=== PATIENT | female | born 1960 | race Caucasian/White ===

== ENCOUNTER 2022-07-20 21:27 | Inpatient (IN) | payer BC, SELFPAY ==
[2022-07-20 22:30] VITALS: BP 169/80; PULSE 74; RESP 16; TEMP 36.6; O2SAT 100
[2022-07-20] MEDS: Famotidine 20 MG TABLET PO (23:37)
[2022-07-20] MEDS: traZODone HCL 100 MG TABLET PO (23:37)
[2022-07-20] MEDS: Omeprazole 40 MG CAPSULE.DR PO (23:37)
[2022-07-20] MEDS: Acetaminophen 325 MG TABLET 650 MG PO (23:46)
[2022-07-20 23:50] VITALS: BMI 26.0
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
[2022-07-21 08:16] VITALS: BP 184/90; PULSE 91; RESP 16; TEMP 36.6; O2SAT 98
[2022-07-21] MEDS: Multivitamin TABLET 1 TAB PO (08:35)
[2022-07-21] MEDS: Omeprazole 40 MG CAPSULE.DR PO ×2 (08:35→17:17)
[2022-07-21] MEDS: Atorvastatin Calcium 10 MG TABLET PO (08:35)
[2022-07-21] MEDS: Famotidine 20 MG TABLET PO ×2 (08:36→21:08)
[2022-07-21] MEDS: lisinopriL 10 MG TABLET PO (08:37)
[2022-07-21 09:14] LABS: Cholesterol 172 mg/dL; HDL Cholesterol 53 mg/dL; LDL Cholesterol Calculated 84 mg/dl; Magnesium 2.1 mg/dL (1.6-2.6); Triglycerides 178 mg/dL
[2022-07-21 09:18] LABS: Estimated Average Glucose 111 mg/dL; Hemoglobin A1c % 5.5 %
[2022-07-21 09:36] LABS: Free T4 (Free Thyroxine) 1.13 ng/dL (0.71-1.85); Thyroid Stimulating Hormone 0.34 uIU/mL (0.32-4.0)
[2022-07-21] MEDS: Docusate Sodium 100 MG CAPSULE PO ×2 (09:37→21:08)
--- NOTE | 2022-07-21 13:44 | PC.NURSE ---
Per patient request phone, 2 chargers, notebook computer, 2 sets of keys and wallet given to patient's to bring home. Blue coat and Blue Craft Manager bag with all contents of bag given to to bring home also, at patient request.
[2022-07-21 15:39] LABS: Folate 17.2 ng/mL (> or = 4.0); Vitamin B12 778 pg/mL (200-900)
--- NOTE | 2022-07-21 16:47 | P.CNHOSGPS_ITS ---
History of Present Illness Data of Consult Service Date: 07/21/22 Requesting physician: Colleen Kasper Primary Care Provider: Unknown Physician HPI Reason for consult: New admission, routine H&P This is a 61 year old female admitted to for management of SI. She has multiple medical issues including acid reflux, hypertension, hyperlipidemia, diet-controlled diabetes, gastroparesis and ROMERO. She was admitted to the psychiatric floor for management of suicidal ideation in the setting of recent of her mother. She states that she has left-sided rib pain related to a recent rib fracture. She denies any associated shortness of breath or cough. She has had total colectomy but does not usually suffer from constipation. She does report a few days without bowel movement but no abdominal pain. She denies fever or chills. Review of Systems Review of Systems: Yes all other systems are reviewed and are negative Constitutional: Constitutional: Denies chills and Denies fever(s) Cardiovascular: Cardiovascular: Denies chest pain, Denies palpitations and Denies dyspnea Respiratory: Respiratory: Denies cough and Denies dyspnea Gastrointestinal: Gastrointestinal: Denies abdominal pain, Denies nausea and Denies vomiting Endocrine: Endocrine: Denies palpitations [facility] Medical History Cirrhosis Depression Diabetes mellitus, type 2 Esophageal varices Gastroparesis GERD (gastroesophageal reflux disease) Glaucoma Hypercholesteremia Hypertension PTSD (post-traumatic stress disorder) Suicidal behavior Family History Father Alcoholism Mother Lung cancer Surgical History H/O total colectomy History of hysterectomy Social History Household Members: Spouse Housing: House Do you presently have visiting nurse or other home services: No Patient Tobacco Use Status: Never used Tobacco Smoked in Last 30 Days: No e-Cigarette/Vaping Use: Never Used Patient Interested in Nicotine Replacement: No Patient Given Instructions on How to Stop Smoking: No Second Hand Smoke Exposure: No Use of substances other than those prescribed or required for medical reasons: No Currently Displaying Signs/Symptoms of Drug Intoxication Withdrawal: No Have you been hit, kicked, punched, or otherwise hurt by someone within the past year? If so, by whom?: No Do you feel safe in your current relationship?: Yes Is there a partner from a previous relationship who is making you feel unsafe now?: No Are you made to feel afraid or neglected: No Advance Directives: No Advance Directives Information Provided: No Do you have thoughts of harming others: None Do you have a plan to hurt others: No Plan Recently lost weight without trying: Yes How much weight loss: 2-13 pounds Eating poorly because of decreased appetite: Yes Nutrition screen score: 4 Nutrition Risks: No Nutritional Risk Patient : No : No Poor oral hygiene: No Meds Allergies Allergy/AdvReac Type Severity Reaction Status Date / Time No Known Allergies Allergy Verified 07/20/22 22:29 Active Medications: Current Medications Al Hydroxide/Mg Hydroxide (Magnesium Hydrox/Alum Hydrox 30 Ml Oral.Susp) 30 ml PO Q6H PRN PRN Reason: Heartburn/Nausea Atorvastatin Calcium (Atorvastatin Calcium 10 Mg Tablet) 10 mg PO DAILY [facility] Last Admin: 07/21/22 08:35 Dose: 10 mg Clonazepam (Clonazepam 1 Mg Tablet) 1 mg PO BID PRN PRN Reason: anxiety Docusate Sodium (Docusate Sodium 100 Mg Capsule) 100 mg PO BID [facility] Last Admin: 07/21/22 09:37 Dose: 100 mg Famotidine (Famotidine 20 Mg Tablet) 20 mg PO BID [facility] Last Admin: 07/21/22 08:36 Dose: 20 mg Fluticasone Propionate (Fluticasone Propionate Nasal 16 Gm [place]) 2 spray NOSTRIL-B DAILY PRN PRN Reason: dry nose Hydroxyzine HCl (Hydroxyzine Hcl 25 Mg Tablet) 25 mg PO Q6H PRN PRN Reason: Anxiety Latanoprost (Latanoprost 0.005 % Ophth Tara 2.5 Ml Drops) 1 drop EYE-BOTH BEDTIME [facility] Lisinopril (Lisinopril 10 Mg Tablet) 10 mg PO DAILY [facility]; Protocol Last Admin: 07/21/22 08:37 Dose: 10 mg Magnesium Hydroxide (Milk Of Magnesia 30 Ml Oral.Susp) 30 ml PO DAILY PRN PRN Reason: Constipation Multivitamins/Vitamin C (Multivitamin Tablet) 1 tab PO DAILY [facility] Last Admin: 07/21/22 08:35 Dose: 1 tab Omeprazole (Omeprazole 40 Mg Capsule.Dr) 40 mg PO BID@0630,1630 [facility] Last Admin: 07/21/22 08:35 Dose: 40 mg Trazodone HCl (Trazodone Hcl 50 Mg Tablet) 50 mg PO BEDTIME PRN PRN Reason: Insomnia Trazodone HCl (Trazodone Hcl 100 Mg Tablet) 100 mg PO BEDTIME [facility] Last Admin: 07/20/22 23:37 Dose: 100 mg Home Medications Medication Instructions Recorded Confirmed Last Taken Type atorvastatin 10 mg tablet 10 mg PO DAILY 07/21/22 07/21/22 Unknown History clonazepam 2 mg tablet (Klonopin) 2 mg PO TID PRN Anxiety 07/21/22 07/21/22 Unknown History famotidine 20 mg tablet (Pepcid) 20 mg PO BID 07/21/22 07/21/22 Unknown History fluticasone propionate 50 1 spray intranasal DAILY 07/21/22 07/21/22 Unknown History mcg/actuation nasal spray,suspension latanoprost 0.005 % eye drops 1 drp ophthalmic (eye) BEDTIME 07/21/22 07/21/22 Unknown History lisinopril 10 mg tablet 10 mg PO DAILY 07/21/22 07/21/22 Unknown History omeprazole 40 mg capsule,delayed 40 mg BID 07/21/22 07/21/22 Unknown History release trazodone 100 mg tablet 100 mg PO BEDTIME 07/21/22 07/21/22 Unknown History Results Labs Labs: Laboratory Results - last 24 hr 07/21/22 07/21/22 07/21/22 08:33 08:33 08:33 Estimat Average Glucose 111 Hemoglobin A1c % 5.5 Magnesium 2.1 Triglycerides 178 Cholesterol 172 LDL Cholesterol, Calc 84 HDL Cholesterol 53 Vitamin B12 778 Folate 17.2 TSH 0.34 Free T4 1.13 Assessment and Plan (1) Left rib fracture: Status: Acute Plan This is a 61-year-old female with history of HLD, HTN, GERD, ROMERO with esophageal varices and portal HTN, diet controlled DM who was admitted to the adult psychiatric unit from [facility] due to suicidal ideation without a plan in the setting of the recent of her mother. Left rib fracture Patient reports being diagnosed with left rib fracture approximately 2 weeks ago Still reporting pain but denies shortness of breath -short term use of lidoderm patch ok as long as use limited to 12 hours on/12 off (due to h/o liver dz -ALT/AST from [facility] wnl) HTN BP uncontrolled pt thinks r/t stress, wants to hold off on adjusting meds at this time if able Asymptomatic, no shortness of breath, chest pain, vision changes -follow BP trend closely -will check BMP - can increase dose of lisinopril if BP remains elevated and renal function ok; alternatively could start Norvasc 5mg ROMERO Has associated portal hypertension and esophageal varices Has been unable to tolerate BB Constipation Continue Colace, p.r.n. MOM Gerd continue omeprazole/pepcid HLD continue statin Thank you for allowing us to participate in the care of this patient. There are no other acute medical conditions at this time Feel free to call us if any acute medical issues arise Physical Exam Vital Signs: Last Vital Signs Temp 98 F 07/21/22 08:16 Pulse 91 07/21/22 08:16 Resp 16 07/21/22 08:16 BP 184/90 H 07/21/22 08:16 Pulse Ox 98 07/21/22 08:16 O2 Del Method 07/21/22 08:16 BMI result Body Mass Index 26.0 Const General: cooperative, comfortable, no acute distress, alert and awake Nutritional Appearance: average body habitus Orientation/consciousness: patient oriented x3 Resp Effort & Inspection: normal respiratory effort and able to speak in complete sentences Auscultation: clear to auscultation bilaterally Cardio Rate: regular rate Heart sounds: S1 normal heart sound present and S2 normal heart sound present GI Inspection: No distended Palpation (GI): Soft to palpation Neuro General: patient oriented x3 and CN's II-XI intact bilaterally Cranial nerves: Yes CN's II-XII intact bilaterally Extrem General: Yes no pedal edema
--- NOTE | 2022-07-21 16:54 | HO.PSYADMNOT ---
HPI Date of Service: 07/21/22 Chief Complaint: unspecified mental disorder HPI Subjective Notes: Conditional Voluntary Narrative: The patient is a 61-year-old female referred by [facility] weaning. The patient has had thoughts of suicide her mother about a week ago she stopped taking Wellbutrin and Adderall a number of months ago the been prescribed by Dr. Vladislav Armendariz. Patient also stopped marijuana use after being diagnosis with marijuana hyperemisis she did have a significant medical workup including abdominal CT scan there is a history of total colectomy The patient has a history of past suicide attempts her mother was a significant emotional support. Patient has also had to deal with multiple medical issues including fatty liver with cirrhosis a total colectomy for reasons that are not clear. The patient does have a therapist and [place] and her psychiatrist is Dr. Armendariz however has felt more disconnected since all the contacts have been by telephone of for the past period of time since [facility]. Patient does have a history of irritability reactivity times many years. This does not seem to be just associated with when she is in a mood state. She does describe chronic anxiety irritability obsessive symptoms unclear if clear periods of hai or hypomania. Patient did have ECT in the past which she states was not helpful. She has [facility] in the past which she states had been quite helpful is not totally clear why the patient discontinued her medication without discussing it with Dr. Armendariz. Other stressors include difficulty in her relationship with her children. Patient did make suicidal statements in the emergency room. Patient does state she had done quite well on Anafranil in the past Past SSRI trials were not helpful Past Psychiatric History: See above Medical Evaluation Reviewed: Hospitalist Ayad Pending ER notes from [facility] Medical History (Updated 07/22/22 @ 22:32 by Sameer Darling MD) Cirrhosis Depression Diabetes mellitus, type 2 Esophageal varices Gastroparesis GERD (gastroesophageal reflux disease) Glaucoma Hypercholesteremia Hypertension Post traumatic stress disorder (PTSD) PTSD (post-traumatic stress disorder) Suicidal behavior Surgical History H/O total colectomy History of hysterectomy Family History: depressin Social History: Patient is on disability she is 42 years she states generally she and her do get along recent conflict because he would not fly to [place] after her mother's . He will only drive. The patient has 3 children 1 brother in [place] a sister in [place] Substance History: marijuan Trauma History: Positive childhood history also medical trauma Diagnostics Vital Signs (24Hr): Vital Signs - 24 hr 07/20/22 22:30 07/21/22 08:16 Temperature 97.8 F 98 F Pulse Rate 74 91 Respiratory Rate 16 16 Blood Pressure 169/80 H 184/90 H Pulse Oximetry 100 98 Oxygen Delivery Method Room Air Room Air BMI result Body Mass Index 26.0 Labs Results: 07/22/22 06:34 Labs: Laboratory Results - last 48 hr 07/21/22 07/21/22 07/21/22 08:33 08:33 08:33 Estimat Average Glucose 111 Hemoglobin A1c % 5.5 Magnesium 2.1 Triglycerides 178 Cholesterol 172 LDL Cholesterol, Calc 84 HDL Cholesterol 53 Vitamin B12 778 Folate 17.2 TSH 0.34 Free T4 1.13 Meds/Allergies Meds Home Medications Medication Instructions Recorded Confirmed Type atorvastatin 10 mg tablet 10 mg PO DAILY 07/21/22 07/21/22 History clonazepam 2 mg tablet (Klonopin) 2 mg PO TID PRN Anxiety 07/21/22 07/21/22 History famotidine 20 mg tablet (Pepcid) 20 mg PO BID 07/21/22 07/21/22 History fluticasone propionate 50 1 spray intranasal DAILY 07/21/22 07/21/22 History mcg/actuation nasal spray,suspension latanoprost 0.005 % eye drops 1 drp ophthalmic (eye) BEDTIME 07/21/22 07/21/22 History lisinopril 10 mg tablet 10 mg PO DAILY 07/21/22 07/21/22 History omeprazole 40 mg capsule,delayed 40 mg BID 07/21/22 07/21/22 History release trazodone 100 mg tablet 100 mg PO BEDTIME 07/21/22 07/21/22 History Allergies Allergies Allergy/AdvReac Type Severity Reaction Status Date / Time No Known Allergies Allergy Verified 07/20/22 22:29 Mental Status Exam Mental Status Exam Patient Appearance: Well Grooomed Patient Orientation: Person, Place, Time and Situation Level of Consciousness: Awake Patient Behavior: Appropriate Mood Description: Depressed, Nervous and Apprehensive Affect Description: Labile Thought Content: positive for Preoccupation, positive for Suicidal Ideation (Denies intent) and positive for Homicidal Ideation (She does state she has a temper denies any active thoughts or plan to harm anyone) Depressive Symptoms: Increased Anxiety, Insomnia and Thoughts of /Suicide Judgement: Fair Judgement and Insight: The patient is is asking for help she is reflective denies any self-harm in this setting Assessment & Plan Assessment & Plan (1) Post traumatic stress disorder (PTSD): Status: Acute Code(s): F43.10 - Post-traumatic stress disorder, unspecified (2) Major depressive disorder, recurrent severe without psychotic features: Status: Acute Code(s): F33.2 - Major depressive disorder, recurrent severe without psychotic features (3) OCD (obsessive compulsive disorder): Status: Acute Code(s): F42.9 - Obsessive-compulsive disorder, unspecified (4) Cannabis use disorder: Status: Acute Code(s): F12.90 - Cannabis use, unspecified, uncomplicated Plan Patient is admitted with thoughts of self-harm depressed agitated periods of irritability reactivity much of which appear to be chronic chronic intermittent SI describes chronic depression unclear if periods of hypomania. Patient did not feel Wellbutrin had been helpful she was also diagnosed with ADHD and was on Adderall which she states she is not taking. Her psychiatrist Dr. Armendariz would try to coordinate care get additional history. Patient did well on Anafranil she states she has a biopsy-proven diagnosis of cirrhosis at [facility] even though she has normal liver function test. We discussed option of lithium not liver metabolized and low-dose lithium may be quite beneficial for depressive symptoms impulsivity irritability and suicidal impulsivity. This was discussed with the patient also discussed consideration partial Hospital and TMS clarify diagnostic issues Patient educated on: diagnosis, medication risk/benefits and TMS Reason for continued inpatient stay Substantial Risk for: harm to self and rapid decompensation
[2022-07-21] MEDS: Lidocaine 4 % Patch ADH..PATCH 1 PATCH TRANSDERMA (17:17)
[2022-07-21 17:24] LABS: Alanine Aminotransferase 15 U/L (0-31); Albumin Level 4.5 g/dL (3.5-5.0); Alkaline Phosphatase 91 U/L (39-117); Aspartate Amino Transferase 16 U/L (5-31); Bilirubin Direct 0.2 mg/dL (0.0-0.5); Bilirubin Total 0.5 mg/dL (0.0-1.0)
[2022-07-21 20:40] VITALS: BP 165/85; PULSE 90; RESP 16; TEMP 36.8; O2SAT 97
[2022-07-21] MEDS: traZODone HCL 100 MG TABLET PO (21:08)
[2022-07-21] MEDS: Ibuprofen 800 MG TABLET PO (21:09)
[2022-07-21] MEDS: Latanoprost 0.005 % Ophth Sol 2.5 ML DROPS 1 DROP EYE-BOTH (21:09)
[2022-07-22 07:19] LABS: Anion Gap 14 (12-20); Blood Urea Nitrogen 13 mg/dL (9-16); Calcium 9.8 mg/dL (8.4-10.2); Carbon Dioxide 29 mmol/L (22-29); Chloride 105 mmol/L (96-108); Creatinine Clr Calc Pharmacy 63.3; Estimated Glomerular Filt Rate > 60; Glucose Random 118 mg/dL (60-115); Potassium 4.9 mmol/L (3.3-5.1); Sodium 143 mmol/L (135-145)
[2022-07-22 08:51] VITALS: BP 179/79; PULSE 86; RESP 18; TEMP 36.1; O2SAT 99
[2022-07-22] MEDS: Atorvastatin Calcium 10 MG TABLET PO (08:53)
[2022-07-22] MEDS: Multivitamin TABLET 1 TAB PO (08:54)
[2022-07-22] MEDS: lisinopriL 10 MG TABLET PO (08:54)
[2022-07-22] MEDS: Famotidine 20 MG TABLET PO ×2 (08:54→21:12)
[2022-07-22] MEDS: Docusate Sodium 100 MG CAPSULE PO ×2 (08:54→21:12)
[2022-07-22] MEDS: Omeprazole 40 MG CAPSULE.DR PO ×2 (08:54→16:50)
[2022-07-22] MEDS: clonazePAM 1 MG TABLET PO (11:31)
[2022-07-22 21:08] VITALS: BP 161/87; PULSE 112; RESP 18; TEMP 36.4; O2SAT 100
[2022-07-22] MEDS: traZODone HCL 100 MG TABLET PO (21:12)
[2022-07-22] MEDS: Latanoprost 0.005 % Ophth Sol 2.5 ML DROPS 1 DROP EYE-BOTH (21:13)
[2022-07-22] MEDS: hydrOXYzine HCL 25 MG TABLET PO (21:16)
--- NOTE | 2022-07-22 22:38 | P.PNPSI_ITS ---
Subjective Subjective Date of Service: 07/22/22 Reason For Visit: unspecified mental disorder Subjective Notes: Conditional Voluntary Healthcare Proxy: No Guardianship: No Medication Compliance: Yes Attending Groups: Yes Review of Systems Acute medical concerns: Yes Mental Status Exam Mental Status Exam Patient Appearance: Well Grooomed Patient Orientation: Person, Place, Time and Situation Level of Consciousness: Awake Patient Behavior: Appropriate Mood Description: Depressed, Nervous and Apprehensive Affect Description: Labile Thought Content: positive for Preoccupation, positive for Suicidal Ideation (Denies intent) and positive for Homicidal Ideation (She does state she has a temper denies any active thoughts or plan to harm anyone) Depressive Symptoms: Increased Anxiety, Insomnia and Thoughts of /Suicide Judgement: Fair Judgement and Insight: The patient is is asking for help she is reflective denies any self-harm in this setting Diagnostics Vital Signs (24Hr): Vital Signs - 24 hr 07/22/22 08:51 07/22/22 21:08 Temperature 96.9 F 97.6 F Pulse Rate 86 112 H Respiratory Rate 18 18 Blood Pressure 179/79 H 161/87 H Pulse Oximetry 99 100 Oxygen Delivery Method Room Air Room Air BMI result Body Mass Index 26.0 Labs Results: 07/24/22 10:18 Labs: Laboratory Results - last 48 hr 07/21/22 07/21/22 07/21/22 08:33 08:33 08:33 Sodium Potassium Chloride Carbon Dioxide Anion Gap BUN Creatinine Estim Creat Clear Calc Estimated GFR Random Glucose Estimat Average Glucose 111 Hemoglobin A1c % 5.5 Calcium Magnesium 2.1 Total Bilirubin 0.5 Direct Bilirubin 0.2 AST 16 ALT 15 Alkaline Phosphatase 91 Total Protein 7.0 Albumin 4.5 Triglycerides 178 Cholesterol 172 LDL Cholesterol, Calc 84 HDL Cholesterol 53 Vitamin B12 778 Folate 17.2 TSH 0.34 Free T4 1.13 07/22/22 06:34 Sodium 143 Potassium 4.9 Chloride 105 Carbon Dioxide 29 Anion Gap 14 BUN 13 Creatinine 0.78 Estim Creat Clear Calc 63.3 Estimated GFR > 60 Random Glucose 118 H Estimat Average Glucose Hemoglobin A1c % Calcium 9.8 Magnesium Total Bilirubin Direct Bilirubin AST ALT Alkaline Phosphatase Total Protein Albumin Triglycerides Cholesterol LDL Cholesterol, Calc HDL Cholesterol Vitamin B12 Folate TSH Free T4 Medications Medications Current Medications Al Hydroxide/Mg Hydroxide (Magnesium Hydrox/Alum Hydrox 30 Ml Oral.Susp) 30 ml PO Q6H PRN PRN Reason: Heartburn/Nausea Atorvastatin Calcium (Atorvastatin Calcium 10 Mg Tablet) 10 mg PO DAILY [facility] Last Admin: 07/22/22 08:53 Dose: 10 mg Clonazepam (Clonazepam 1 Mg Tablet) 1 mg PO BID PRN PRN Reason: anxiety Last Admin: 07/22/22 11:31 Dose: 1 mg Clonidine HCl (Clonidine Hcl 0.1 Mg Tablet) 0.05 mg PO Q4H PRN; Protocol PRN Reason: Anxiety Docusate Sodium (Docusate Sodium 100 Mg Capsule) 100 mg PO BID [facility] Last Admin: 07/22/22 21:12 Dose: 100 mg Famotidine (Famotidine 20 Mg Tablet) 20 mg PO BID [facility] Last Admin: 07/22/22 21:12 Dose: 20 mg Fluticasone Propionate (Fluticasone Propionate Nasal 16 Gm [place]) 2 spray NOSTRIL-B DAILY PRN PRN Reason: dry nose Hydroxyzine HCl (Hydroxyzine Hcl 25 Mg Tablet) 25 mg PO Q6H PRN PRN Reason: Anxiety Last Admin: 07/22/22 21:16 Dose: 25 mg Ibuprofen (Ibuprofen 800 Mg Tablet) 800 mg PO Q8H PRN PRN Reason: rib pain Last Admin: 07/21/22 21:09 Dose: 800 mg Latanoprost (Latanoprost 0.005 % Ophth Tara 2.5 Ml Drops) 1 drop EYE-BOTH BEDTIME [facility] Last Admin: 07/22/22 21:13 Dose: 1 drop Lidocaine (Lidocaine 4 % Patch Adh..Patch) 1 patch TRANSDERMA DAILY [facility]; Protocol Last Admin: 07/22/22 09:26 Dose: Not Given Lisinopril (Lisinopril 10 Mg Tablet) 10 mg PO DAILY [facility]; Protocol Last Admin: 07/22/22 08:54 Dose: 10 mg Mcnary Carbonate (Mcnary Carbonate 300 Mg Tablet) 150 mg PO BID [facility] Magnesium Hydroxide (Milk Of Magnesia 30 Ml Oral.Susp) 30 ml PO DAILY PRN PRN Reason: Constipation Multivitamins/Vitamin C (Multivitamin Tablet) 1 tab PO DAILY [facility] Last Admin: 07/22/22 08:54 Dose: 1 tab Omeprazole (Omeprazole 40 Mg Capsule.Dr) 40 mg PO BID@0630,1630 [facility] Last Admin: 07/22/22 16:50 Dose: 40 mg Trazodone HCl (Trazodone Hcl 50 Mg Tablet) 50 mg PO BEDTIME PRN PRN Reason: Insomnia Trazodone HCl (Trazodone Hcl 100 Mg Tablet) 100 mg PO BEDTIME [facility] Last Admin: 07/22/22 21:12 Dose: 100 mg Allergies Allergies Allergy/AdvReac Type Severity Reaction Status Date / Time No Known Allergies Allergy Verified 07/20/22 22:29 Assessment & Plan Assessment & Plan (1) Post traumatic stress disorder (PTSD): Status: Acute Code(s): F43.10 - Post-traumatic stress disorder, unspecified (2) Major depressive disorder, recurrent severe without psychotic features: Status: Acute Code(s): F33.2 - Major depressive disorder, recurrent severe without psychotic features (3) OCD (obsessive compulsive disorder): Status: Acute Code(s): F42.9 - Obsessive-compulsive disorder, unspecified Plan Patient is admitted with thoughts of self-harm depressed agitated periods of irritability reactivity much of which appear to be chronic chronic intermittent SI describes chronic depression unclear if periods of hypomania. Patient did not feel Wellbutrin had been helpful she was also diagnosed with ADHD and was on Adderall which she states she is not taking. Her psychiatrist Dr. Armendariz would try to coordinate care get additional history. Patient did well on Anafranil she states she has a biopsy-proven diagnosis of cirrhosis at [facility] even though she has normal liver function test. We discussed option of lithium not liver metabolized and low-dose lithium may be quite beneficial for depressive symptoms impulsivity irritability and suicidal impulsivity. This was discussed with the patient also discussed consideration partial Hospital and TMS clarify diagnostic issues I spent minutes with the patient and/or on the patient floor today, greater than?50% of which was spent counseling/coordinating care. Reason for contiued inpatient stay Substantial Risk for: harm to self
[2022-07-23] MEDS: Ibuprofen 800 MG TABLET PO (06:31)
[2022-07-23] MEDS: Omeprazole 40 MG CAPSULE.DR PO ×2 (06:31→17:08)
[2022-07-23 08:40] VITALS: BP 132/91; PULSE 83; RESP 20; TEMP 36.6; O2SAT 98
[2022-07-23] MEDS: lisinopriL 10 MG TABLET PO (08:49)
[2022-07-23] MEDS: Atorvastatin Calcium 10 MG TABLET PO (08:49)
[2022-07-23] MEDS: Famotidine 20 MG TABLET PO ×2 (08:49→22:35)
[2022-07-23] MEDS: Multivitamin TABLET 1 TAB PO (08:50)
[2022-07-23] MEDS: Docusate Sodium 100 MG CAPSULE PO ×2 (08:50→22:34)
[2022-07-23] MEDS: Lithium Carbonate 300 MG TABLET 150 MG PO ×2 (08:50→22:35)
--- NOTE | 2022-07-23 14:54 | MHC.CLN ---
NUTRITION CONSULT FOR RECENT HYPEREMESIS AND WEIGHT FLUCTUATION. PATIENT REPORTS THAT SHE IS NO LONGER VOMITING AND IS EATING WELL. DIET=REGULAR. DIET CONTROLLED DM AND MAKES OWN FOOD CHOICES. DID NOT WANT NUTRITIONAL SUPPLEMENT. CONTINUE REGULAR DIET. NO ADDITIONAL NUTRITION INTERVENTIONS AT THIS TIME.
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
[2022-07-23 22:09] VITALS: BP 132/84; PULSE 94; RESP 18; TEMP 36.1; O2SAT 99
[2022-07-23] MEDS: traZODone HCL 50 MG TABLET PO (22:35)
[2022-07-23] MEDS: traZODone HCL 100 MG TABLET PO (22:35)
[2022-07-23] MEDS: cloNIDine HCL 0.1 MG TABLET 0.05 MG PO (22:35)
[2022-07-23] MEDS: Latanoprost 0.005 % Ophth Sol 2.5 ML DROPS 1 DROP EYE-BOTH (22:42)
[2022-07-23 23:37] LABS: Appearance Urine Clear; Color Urine Yellow; Glucose Urine UA Negative (Negative); Leukocyte Esterase Urine Negative (Negative); Nitrite Urine Negative (Negative); Specific Gravity - Urine <= 1.005 (1.005-1.025); Urine Blood Negative (Negative); Urine Ketones Negative (Negative); Urine Protein Negative (Neg-Trace)
[2022-07-24] MEDS: hydrOXYzine HCL 25 MG TABLET PO (03:25)
[2022-07-24 08:30] VITALS: BP 136/89; PULSE 86; RESP 20; TEMP 36.6; O2SAT 98
[2022-07-24] MEDS: Docusate Sodium 100 MG CAPSULE PO (08:30)
[2022-07-24] MEDS: Omeprazole 40 MG CAPSULE.DR PO (08:31)
[2022-07-24] MEDS: lisinopriL 10 MG TABLET PO (08:31)
[2022-07-24] MEDS: Atorvastatin Calcium 10 MG TABLET PO (08:31)
[2022-07-24] MEDS: Multivitamin TABLET 1 TAB PO (08:32)
[2022-07-24] MEDS: Famotidine 20 MG TABLET PO (08:32)
[2022-07-24] MEDS: Lithium Carbonate 300 MG TABLET 150 MG PO (08:34)
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
[2022-07-24 10:39] LABS: Lithium 0.31 mmol/L (0.60-1.20)
[2022-07-24 10:47] LABS: Anion Gap 14 (12-20); Blood Urea Nitrogen 11 mg/dL (9-16); Calcium 9.6 mg/dL (8.4-10.2); Carbon Dioxide 25 mmol/L (22-29); Chloride 103 mmol/L (96-108); Creatinine Clr Calc Pharmacy 65.9; Estimated Glomerular Filt Rate > 60; Glucose Random 154 mg/dL (60-115); Potassium 3.6 mmol/L (3.3-5.1); Sodium 138 mmol/L (135-145)
--- NOTE | 2022-07-24 11:02 | PC.NURSE ---
Patient alert, oriented x3, denies SI/HI, denies AH/VH, states she feels ready for discharge I think I jumped the gun...if I'd waited, this would have passed. Reviewed discharge instructions with patient, patient verbalized understanding of instructions, states she has no further questions.
--- OUTSIDE RECORDS SUMMARY | 2022-08-08 13:54 | XMS_ITS | Continuity of Care Document ---
:1960 Author Organization [facility] Address [address] [place] [address]- Care Team Providers Name Role Phone Gucci DAVALOS, Amira Chavez Primary Care Physician [facility] [id number] Date(s): 02/12/20 - 02/22/20 [facility] [address] [place] [id number] Attending Physician: Rubina Arnold Admitting Physician: Rubina Arnold Referring Physician: Rubina Arnold Allergies, Adverse Reactions, Alerts Substance Reaction Severity Status metFORMIN bad taste in mouth Active Immunizations Given and Recorded Vaccine Date Status Refusal Reason influenza virus vaccine, inactivated1 08/15/18 Recorded influenza virus vaccine, inactivated 10/16/16 Given influenza virus vaccine, inactivated2 09/11/15 Recorded pneumococcal 23-valent vaccine3 07/02/18 Given Zoster Vaccine Live 07/19/17 Given Adacel (Tdap) (oldterm)4 09/11/15 Recorded 1Result Comment: [08/18/2018] Stop and [id number] Comment: [12/07/2015] Given at [facility], estimated date of [id number] Comment: [07/02/2018] [facility]: [id number] Comment: [12/07/2015] Given at [facility], estimated given date Medications 0.2% NIFEDIPINE IN 5% LIDOCAINE OINMENT 0.2% NIFEDIPINE IN 5% LIDOCAINE OINMENT, See Instructions, PRN Pain , Severe, # 30 Gm, Refills 0, Tot. Refills 0, Maintenance, APPLY PEA SIZE AMOUNT TO ANAL AREA FOR PAIN NEEDED USE TWICE A DAY, 02/12/20 12:13:00 EDT, Compound Start Date: 02/12/20 Status: Orderedamphetamine-dextroamphetamine 10 mg oral tablet 1 tablet = 10 mg, By Mouth, Daily in AM, # 30 tablet, 0 Refills, Maintenance, 01/06/18 15:09:53, Tablet Start Date: 01/06/18 Status: OrderedAnusol-HC 25 mg suppository 1 supp = 25 mg, Rectally, 2 times a day, # 28 supp, 1 Refills, Maintenance, 02/09/20 14:07:00 EDT, Suppository, [facility], 158, cm, 02/09/20 13:42:00 EDT, Height, 79.5, kg, 188:22:00 EDT, Dry Weight Start Date: 02/09/20 Status: Orderedatorvastatin 10 mg oral tablet 1 tablet = 10 mg, By Mouth, Daily, # 90 tablet, 1 Refills, Maintenance, 11/25/19 19:51:00 EST, [facility], 158, cm, 11/23/19 11:27:00 EST, Height, 79.5, kg, 07/24/18 8:22:00 EDT, DryWeight Start Date: 11/25/19 Stop Date: 05/23/20 Status: OrderedbuPROPion 300 mg/24 hours (XL) oral tablet, extended release 2 tablets, By Mouth, Daily, # 60 tablet, 0 Refills, Maintenance, 10/19/19 13:12:56 EST, ER Tablet Start Date: 10/19/19 Status: OrderedCalcium 600 +D 600mg/400iu, By Mouth, Daily, 0 Refills, Soft Stop, 12/27/09 11:48:26 Start Date: 12/27/09 Stop Date: 01/26/10 Status: OrderedclonazePAM 0.5 mg oral tablet 1 tablet = 0.5 mg, By Mouth, 3 times a day, 0 Refills, Maintenance, 10/16/16 14:06:14 Start Date: 10/16/16 Status: OrderedEscitalopram By Mouth, Daily, 3ml liquid, 0 Refills, Maintenance, 05/23/18 11:21:05 EDT Start Date: 05/23/18 Status: Orderedferrous sulfate 325 mg oral enteric coated tablet 1 tablet = 325 mg, By Mouth, Daily, # 30 tablet, 0 Refills, Maintenance, 05/26/15 18:20:47, EC Tablet Start Date: 05/26/15 Stop Date: 06/25/15 Status: OrderedFlonase 50 mcg/inh nasal spray 1 sprays, Nares, Both, Daily, in each nostril, # 1 each, 5 Refills, Maintenance, 10/22/19 14:36:21 EST, 1 sprays Nares, Both Daily,x30 days,Instr:in each nostril, 158, cm, 10/19/19 13:08:08 EST, Height, 79.5, kg, 07/24/18 8:22:34 EDT, Dry Weight Start Date: 10/22/19 Stop Date: 04/19/20 Status: Orderedlisinopril 10 mg oral tablet 10 mg, 1, tablet, By Mouth, Daily, # 30 tablet, Refills 5, Tot. Refills 5, Soft Stop, 01/22/20 8:14:00 EDT, Route to Pharmacy Electronically, [facility], 158, cm, 11/23/19 11:27:00 EST, Height, 79.5, kg, 07/24/18 8:22:00 EDT, Dry Weight Start Date: 01/22/20 Stop Date: 07/20/20 Status: Orderedlisinopril 10 mg oral tablet 10 mg, 1, tablet, By Mouth, Daily, # 30 tablet, Refills 5, Tot. Refills 5, Maintenance, 04/13/19 10:16:09 EDT, Route to Pharmacy Electronically, [id number], [facility] Start Date: 04/13/19 Status: OrderedLomotil 0.025 mg-2.5 mg oral tablet 2, tablet, By Mouth, 2 times a day, # 120 tablet, Refills 1, Tot. Refills 1, Maintenance, 02/09/20 14:09:00 EDT, Route to Pharmacy Electronically, [facility] Tablet, 158, cm, 02/09/20 13:42:00 EDT, Height, 79.5, kg, 07/24/18 8:22:00 EDT... Start Date: 02/09/20 Stop Date: 04/09/20 Status: Orderedloperamide 2 mg oral capsule 4 mg, 2, capsule, By Mouth, Every 4 hours, PRN, # 240 capsule, Refills 6, Tot. Refills 6, Maintenance, for loose stool, 08/16/17 13:55:52, Route to Pharmacy Electronically, [id number], [facility] Start Date: 08/16/17 Stop Date: 03/14/18 Status: Orderedloperamide 2 mg oral tablet 2 tablet = 4 mg, By Mouth, 4 times a day, take 1/2 hour before meals and at bed time, # 240 tablet, 12 Refills, Maintenance, 12/15/18 17:17:58 EST Start Date: 12/15/18 Status: OrderedMultivitamin By Mouth, Daily, 0 Refills, Maintenance, 05/19/15 8:11:56 Start Date: 05/19/15 Status: Orderedomeprazole 40 mg oral enteric coated capsule 1 capsule = 40 mg, By Mouth, Daily, # 90 capsule, 1 Refills, Maintenance, 12/21/19 9:50:00 EST, EC Capsule, [facility], 158, cm, 11/23/19 11:27:00 EST, Height, 79.5, kg, 07/24/18 8:22:00 EDT, Dry Weight Start Date: 12/21/19 Stop Date: 06/18/20 Status: OrderedOne Touch Ultra 2 Glucose Meter See Instructions, # 1 each, Maintenance, E11.8 Use as directed., 02/19/20 15:49:00 EDT, Compound, 158, cm, 02/09/20 13:42:00 EDT, Height, 79.5, kg, 07/24/18 8:22:00 EDT, Dry Weight Start Date: 02/19/20 Status: OrderedOne Touch Ultra Test Strips See Instructions, # 100 each, Refills 11, Tot. Refills 11, Maintenance, E11.8 Test blood glucose twice a day and as needed., 02/19/20 15:50:00 EDT, Compound, 158, cm, 02/09/20 13:42:00 EDT, Height, 79.5, kg, 07/24/18 8:22:00 EDT, Dry Weight Start Date: 02/19/20 Status: OrderedOne Touch UltraSoft Lancets See Instructions, # 100 each, Refills 11, Tot. Refills 11, Maintenance, E11.8 Test blood glucose twice a day and as needed., 02/19/20 15:51:00 EDT, Compound, 158, cm, 02/09/20 13:42:00 EDT, Height, 79.5, kg, 07/24/18 8:22:00 EDT, Dry Weight Start Date: 02/19/20 Status: OrderedtraZODone 100 mg oral tablet 50 mg, 0.5, tablet, By Mouth, Daily at bedtime, Refills 0, Maintenance, 10/16/16 14:06:56 Start Date: 10/16/16 Status: OrderedWheelchair See Instructions, # 1 each, Maintenance, Diagnosis: Status post surgery. Treatment: Nonweightbearingon left lower extremity for 6-8 weeks postoperatively. Dispense one wheelchair Duration: 6-8 weeks, 07/17/18 16:51:33 EDT, Compound Start Date: 07/17/18 Status: Ordered Problem List Condition Effective Dates Status Health Status Informant Allergic rhinitis(Confirmed) Active Alopecia(Confirmed) Active Atopic dermatitis(Confirmed) Active Mobley's esophagus(Confirmed) Active Mobley's esophagus(Confirmed) Active Atypical nevus of back(Confirmed) Active Chronic low back pain(Confirmed) Active Fatigue(Confirmed) Active Status post colectomy(Confirmed) Active Hypercholesterolemia(Confirmed) Active Hypertension(Confirmed) Active DM Type II controlled w/o Active complications(Confirmed) Social History Social History Type Response Smoking Status Former smoker; Type: Cigaret genesis; Other: Quit 2015; entered on: 10/16/16 Sex
--- OUTSIDE RECORDS SUMMARY | 2022-08-08 13:54 | XMS_ITS | Continuity of Care Document ---
:1960 Author Organization [facility] Address [address] [id number]- Care Team Providers Name Role Phone Juana DAVALOS, Margaret Elizalde Primary Care Physician Encounter [facility] Date(s): [facility]/22/21 [facility] [address] [place] [address]- Allergies, Adverse Reactions, Alerts Substance Reaction Severity Status metFORMIN bad taste in mouth Active Immunizations Given and Recorded Vaccine Date Status Refusal Reason influenza virus vaccine, inactivated1 08/15/18 Recorded influenza virus vaccine, inactivated 10/16/16 Given influenza virus vaccine, inactivated2 09/11/15 Recorded pneumococcal 23-valent vaccine3 07/02/18 Given Zoster Vaccine Live 07/19/17 Given Adacel (Tdap) (oldterm)4 09/11/15 Recorded 1Result Comment: [08/18/2018] Stop and [id number] Comment: [12/07/2015] Given at [facility], estimated date of [id number] Comment: [07/02/2018] [facility]: [id number] Comment: [12/07/2015] Given at [facility], estimated given date Medications 0.2% NIFEDIPINE IN 5% LIDOCAINE OINMENT 0.2% NIFEDIPINE IN 5% LIDOCAINE OINMENT, See Instructions, PRN Pain , Severe, # 30 Gm, Refills 0, Tot. Refills 0, Maintenance, APPLY PEA SIZE AMOUNT TO ANAL AREA FOR PAIN NEEDED USE TWICE A DAY, 02/12/20 12:13:00 EDT, Compound Start Date: 02/12/20 Status: Orderedamphetamine-dextroamphetamine 30 mg oral capsule, extended release 1 capsule = 30 mg, By Mouth, Daily in AM, 0 Refills, Maintenance, 07/23/20 14:30:00 EDT, CR Capsule Start Date: 07/23/20 Status: Orderedatorvastatin 10 mg oral tablet 1 tablet = 10 mg, By Mouth, Daily, # 90 tablet, 1 Refills, Maintenance, 05/06/20 12:31:00 EDT, [facility], 158, cm, 02/09/20 13:42:00 EDT, Height, 79.5, kg, 07/24/18 8:22:00 EDT, DryWeight Start Date: 05/06/20 Stop Date: 11/02/20 Status: OrderedclonazePAM 0.5 mg oral tablet 2 tablet = 1 mg, By Mouth, 4 times a day, 0 Refills, Maintenance, 10/16/16 14:06:14 EST Start Date: 10/16/16 Status: OrderedFamotidine 0 Refills, Maintenance, 02/21/21 15:15:00 EDT, Partial fill upon patient request if the prescriptionis for a schedule II opioid drug. Start Date: 02/21/21 Status: OrderedFlonase 50 mcg/inh nasal spray 1 [...] 04/13/19 10:16:09 EDT, Route to Pharmacy Electronically, [id number], [facility] Start Date: 04/13/19 Status: OrderedLomotil 0.025 mg-2.5 mg oral tablet 2, tablet, By Mouth, 2 times a day, # 120 tablet, Refills 3, Tot. Refills 3, Maintenance, 03/17/20 15:59:00 EDT, Route to Pharmacy Electronically, [facility] Tablet, 158, cm, 02/09/20 13:42:00 EDT, Height, 79.5, kg, 07/24/18 8:22:00 EDT... Start Date: 03/17/20 Stop Date: 07/15/20 Status: OrderedMultivitamin By Mouth, Daily, 0 Refills, Maintenance, 05/19/15 8:11:56 Start Date: 05/19/15 Status: Orderedomeprazole 40 mg oral enteric coated capsule 1 capsule = 40 mg, By Mouth, Daily, # 90 capsule, 0 Refills, Maintenance, 05/26/20 11:24:00 EDT, EC Capsule, [facility], 158, cm, 02/09/20 13:42:00 EDT, Height, 79.5, kg, 07/24/18 8:22:00 EDT, Dry Weight Start Date: 05/26/20 Status: OrderedOne Touch Ultra Test Strips See Instructions, # 100 each, Refills 11, Tot. Refills 11, Maintenance, E11.8 Test blood glucose twice a day and as needed., 02/19/20 15:50:00 EDT, Compound, 158, cm, 02/09/20 13:42:00 EDT, Height, 79.5, kg, 07/24/18 8:22:00 EDT, Dry Weight Start Date: 02/19/20 Status: OrderedtraZODone 100 mg oral tablet 100 mg, 1, tablet, By Mouth, Daily at bedtime, Refills 0, Maintenance, 10/16/16 14:06:56 EST Start Date: 10/16/16 Status: OrderedWellbutrin By Mouth, 2 times a day, 0 Refills, Maintenance, 06/09/21 20:38:00 EDT, Partial fill upon patient request if the prescription is for a schedule II opioid drug. Start Date: 06/09/21 Status: OrderedWheelchair See Instructions, # 1 each, [...]
--- OUTSIDE RECORDS SUMMARY | 2022-08-08 13:54 | XMS_ITS | Continuity of Care Document ---
:1960 Author Organization [facility] Address [address] [place] [id number]- Care Team Providers Name Role Phone Gucci COMPLIANCE OFFICER, Amira Chavez Primary Care Physician Encounter [facility] Date(s): 07/23/20 - 07/23/[address] [address]- [facility] Encounter Diagnosis Nausea and vomiting (Final) - 07/23/20 Liver fibrosis (Final) - 07/23/20 Upper abdominal pain (Final) - 07/23/20 Discharge Disposition: A-D/C Home Attending Physician: Bello Wagner MD Admitting Physician: Bello Wagner MD Referring Physician: Not on Staff, Referring MD Allergies, Adverse Reactions, Alerts Substance Reaction Severity Status metFORMIN bad taste in mouth Active Immunizations Given and Recorded Vaccine Date Status Refusal Reason influenza virus vaccine, inactivated1 08/15/18 Recorded influenza virus vaccine, inactivated 10/16/16 Given influenza virus vaccine, inactivated2 09/11/15 Recorded pneumococcal 23-valent vaccine3 07/02/18 Given Zoster Vaccine Live 07/19/17 Given Adacel (Tdap) (oldterm)4 09/11/15 Recorded 1Result Comment: [08/18/2018] Stop and [id number] Comment: [12/07/2015] Given at [facility], estimated date of [id number] Comment: [07/02/2018] [facility]: [id number] Comment: [12/07/2015] Given at [facility], estimated given date Medications 0.2% NIFEDIPINE IN [...] EDT, CR Capsule Start Date: 07/23/20 Status: OrderedAnusol-HC 25 mg suppository 1 supp [...] Start Date: 05/06/20 Stop Date: 11/02/20 Status: OrderedbuPROPion 300 mg/24 hours (XL) oral tablet, extended release 1 tablet = 300 mg, By Mouth, Daily, # 60 tablet, 0 Refills, Maintenance, 10/19/19 13:12:56 EST, ER Tablet Start Date: 10/19/19 Status: OrderedCalcium 600 +D 600mg/400iu, By Mouth, Daily, 0 Refills, Soft Stop, 12/27/09 11:48:26 Start Date: 12/27/09 Stop Date: 01/26/10 Status: OrderedclonazePAM 0.5 mg oral tablet 2 tablet = 1 mg, By Mouth, 4 times a day, 0 Refills, Maintenance, 10/16/16 14:06:14 EST Start Date: 10/16/16 Status: Orderedferrous sulfate 325 mg oral enteric [...] 04/13/19 10:16:09 EDT, Route to Pharmacy Electronically, [id number], [facility] Start Date: 04/13/19 Status: OrderedLomotil 0.025 mg-2.5 mg oral tablet 2, tablet, By Mouth, 2 times a day, # 120 tablet, Refills 3, Tot. Refills 3, Maintenance, 03/17/20 15:59:00 EDT, Route to Pharmacy Electronically, [facility] Tablet, 158, cm, 02/09/20 13:42:00 EDT, Height, 79.5, kg, 07/24/18 8:22:00 EDT... Start Date: 03/17/20 Stop Date: 07/15/20 Status: Orderedloperamide 2 mg oral capsule 4 mg, 2, capsule, By Mouth, Every 4 hours, PRN, # 240 capsule, Refills 6, Tot. Refills 6, Maintenance, for loose stool, 08/16/17 13:55:52, Route to Pharmacy Electronically, [id number], [facility] Start Date: 08/16/17 Stop Date: 03/14/18 Status: OrderedMultivitamin By Mouth, Daily, 0 Refills, Maintenance, 05/19/15 8:11:56 Start Date: 05/19/15 Status: Orderednortriptyline 10 mg/5 mL oral solution 1 mL = 2 mg, By Mouth, 3 times a day, 0 Refills, Maintenance, 07/23/20 14:26:00 EDT Start Date: 07/23/20 Status: Orderedomeprazole 40 mg oral enteric coated capsule 1 capsule = 40 mg, By Mouth, Daily, # 90 capsule, 0 Refills, Maintenance, 05/26/20 11:24:00 EDT, EC Capsule, [facility], 158, cm, 02/09/20 13:42:00 EDT, Height, 79.5, kg, 07/24/18 8:22:00 EDT, Dry Weight Start Date: 05/26/20 Status: Orderedondansetron 4 mg oral tablet, disintegrating 1 tablet = 4 mg, By Mouth, Every 8 hours, PRN as needed for nausea/vomiting, 0 Refills, Maintenance,07/23/20 14:29:00 EDT, DIS Tablet Start Date: 07/23/20 Status: OrderedOne Touch Ultra Test Strips See Instructions, # 100 each, Refills 11, Tot. Refills 11, Maintenance, E11.8 Test blood glucose twice a day and as needed., 02/19/20 15:50:00 EDT, Compound, 158, cm, 02/09/20 13:42:00 EDT, Height, 79.5, kg, 07/24/18 8:22:00 EDT, Dry Weight Start Date: 02/19/20 Status: OrderedReglan 10 mg oral tablet 1 tablet = 10 mg, By Mouth, 4 times a day, PRN Vomiting, for 7 days, # 28 tablet, 0 Refills, Acute 07/30/20 18:19:00 EDT, 07/23/20 18:19:00 EDT, Tablet, [facility], 155, cm, 07/23/2016:21:00 EDT, Height, 77.5, kg, 07/23/20 16:21:00 EDT... Start Date: 07/23/20 Stop Date: 07/30/20 Status: OrderedtraZODone 100 mg oral tablet 100 mg, 1, tablet, By Mouth, Daily at bedtime, Refills 0, Maintenance, 10/16/16 14:06:56 EST Start Date: 10/16/16 Status: OrderedWheelchair See Instructions, [...] DM Type II controlled w/o Active complications(Confirmed) Vital Signs Most recent to oldest 1 2 3 [Reference Range]: Height 155 cm 155 cm 155 cm (07/23/20 4:21 PM) (07/23/20 2:25 PM) (07/23/20 2:1 7 PM) Weight 77 kg 77 kg (07/23/20 4:21 PM) (07/23/20 2:17 PM) Oxygen Saturation [94-100 97 % 97 % 98 % %] (07/23/20 6:25 PM) (07/23/20 4:21 PM) (07/23/20 4:1 5 PM) Pulse Rate [55-90 bpm] 84 bpm 93 bpm 90 bpm (07/23/20 6:25 PM) *H* (07/23/20 4:15 PM) (07/23/20 4:21 PM) Body Mass Index 32.05 [18.5-24.99] *>HHI* (07/23/20 4:21 PM) Blood Pressure 127/89 mm Hg 117/81 mm Hg 117/81 mm Hg [90-138/55-84 mm Hg] (07/23/20 6:25 PM) (07/23/20 4:21 PM) ( 0 4:15 PM) Respiratory Rate [16-30 18 br/min 17 br/min 16 br/mi n br/min] (07/23/20 6:25 PM) (07/23/20 4:21 PM) (07/23/20 4:1 5 PM) Temperature [96.8-100.4 98.7 DegF 98.7 DegF DegF] (07/23/20 2:25 PM) (07/23/20 2:17 PM) Mode of Delivery (Oxygen) Room air Room air Room a ir (07/23/20 6:25 PM) (07/23/20 4:21 PM) (07/23/20 4:1 5 PM) Blood pressure sites Arm, left Arm, left Arm, left (07/23/20 6:25 PM) (07/23/20 4:21 PM) (07/23/20 4:1 5 PM) Temperature Route Oral Temporal (07/23/20 2:25 PM) (07/23/20 2:17 PM) Dry Weight 77.5 kg 77.5 kg 77 kg (07/23/20 4:21 PM) (07/23/20 2:25 PM) (07/23/20 2:1 7 PM) Weight Obtained Via Patient/family stated (07/23/20 2:17 PM) Social History Social History Type Response Smoking Status Former smoker; Type: Cigaret genesis; Other: Quit 2015; entered on: 10/16/16 Sex
--- OUTSIDE RECORDS SUMMARY | 2022-08-08 13:54 | XMS_ITS | Continuity of Care Document ---
:1960 Author Organization [facility] Address [address] [place] [address]- Care Team Providers Name Role Phone Gucci MEDICAID COLLECTION SPECIALIST, Amira Chavez Primary Care Physician Encounter [facility] NBR [id number] Date(s): 11/23/19 - 12/03/19 [facility] [address] [place] [address]- [facility] Attending Physician: Rubina Arnold Admitting Physician: Rubina Arnold Referring Physician: AdmRubina staples Allergies, Adverse Reactions, Alerts Substance Reaction Severity Status metFORMIN bad taste in mouth Active Immunizations Given and Recorded Vaccine Date Status Refusal Reason influenza virus vaccine, inactivated1 08/15/18 Recorded influenza virus vaccine, inactivated 10/16/16 Given influenza virus vaccine, inactivated2 09/11/15 Recorded pneumococcal 23-valent vaccine3 07/02/18 Given Zoster Vaccine Live 07/19/17 Given Adacel (Tdap) (oldterm)4 09/11/15 Recorded 1Result Comment: [08/18/2018] Stop and Conv4Apubif Comment: [12/07/2015] Given at [facility], estimated date of jnl2Aubuil Comment: [07/02/2018] [facility]: [id number] Comment: [12/07/2015] Given at [facility], estimated given date Medications amphetamine-dextroamphetamine 10 mg oral tablet 1 tablet = 10 mg, By Mouth, Daily in AM, # 30 tablet, 0 Refills, Maintenance, 01/06/18 15:09:53, Tablet Start Date: 01/06/18 Status: Orderedatorvastatin 10 mg oral tablet 1 [...] 04/19/20 Status: Orderedlisinopril 10 mg oral tablet See Instructions, # 30 tablet, Refills 5 Tot. Refills 5, TAKE ONE TABLET BY MOUTH EVERY DAY, [facility] Start Date: 07/30/19 Status: Orderedlisinopril 10 mg oral tablet 10 mg, 1, tablet, By Mouth, Daily, # 30 tablet, Refills 5, Tot. Refills 5, Maintenance, 04/13/19 10:16:09 EDT, Route to Pharmacy Electronically, [id number], [facility] Start Date: 04/13/19 Status: Orderedloperamide 2 mg oral capsule 4 mg, 2, capsule, By Mouth, Every 4 hours, PRN, # 240 capsule, Refills 6, Tot. Refills 6, Maintenance, for loose stool, 08/16/17 13:55:52, Route to Pharmacy Electronically, [id number], [facility] Start Date: 08/16/17 Stop Date: [...] Daily, # 90 capsule, 0 Refills, Maintenance, 09/17/19 14:23:58 EST, EC Capsule Start Date: 09/17/19 Stop Date: 12/16/19 Status: OrderedtraZODone 100 mg oral tablet 50 [...]
--- OUTSIDE RECORDS SUMMARY | 2022-08-08 13:54 | XMS_ITS | Continuity of Care Document ---
:1960 Author Organization [facility] Address [address] [place] [address]- Care Team Providers Name Role Phone Gucci DAVALOS, Amira Chavez Primary Care Physician Encounter [facility] Date(s): 05/26/20 - 06/25/20 [facility] [address] [place] [address]- Allergies, Adverse Reactions, Alerts Substance Reaction Severity Status metFORMIN bad taste in mouth Active Immunizations Given and Recorded Vaccine Date Status Refusal Reason influenza virus vaccine, inactivated1 08/15/18 Recorded influenza virus vaccine, inactivated 10/16/16 Given influenza virus vaccine, inactivated2 09/11/15 Recorded pneumococcal 23-valent vaccine3 07/02/18 Given Zoster Vaccine Live 07/19/17 Given Adacel (Tdap) (oldterm)4 09/11/15 Recorded 1Result Comment: [08/18/2018] Stop and [id number] Comment: [12/07/2015] Given at [facility], estimated date of vjl3Fszacl Comment: [07/02/2018] [facility]: [id number] Comment: [12/07/2015] Given at [facility], estimated given date Medications 0.2% NIFEDIPINE [...] 01/22/20 8:14:00 EDT, Route to Pharmacy Electronically, [facility], 158, cm, 11/23/19 11:27:00 EST, Height, 79.5, kg, 07/24/18 8:22:00 EDT, Dry Weight Start Date: 01/22/20 Stop Date: 07/20/20 Status: Orderedlisinopril 10 mg oral tablet 10 mg, 1, tablet, By Mouth, Daily, # 30 tablet, Refills 5, Tot. Refills 5, Maintenance, 04/13/19 10:16:09 EDT, Route to Pharmacy Electronically, [id number], [facility] Start Date: 04/13/19 Status: OrderedLomotil 0.025 mg-2.5 mg oral tablet 2, tablet, By Mouth, 2 times a day, # 120 tablet, Refills 3, Tot. Refills 3, Maintenance, 03/17/20 15:59:00 EDT, Route to Pharmacy Electronically, [facility] Tablet, 158, cm, 02/09/20 13:42:00 EDT, Height, 79.5, kg, 07/24/18 8:22:00 EDT... Start Date: 03/17/20 Stop Date: 07/15/20 Status: Orderedloperamide 2 mg oral capsule 4 mg, 2, capsule, By Mouth, Every 4 hours, PRN, # 240 capsule, Refills 6, Tot. Refills 6, Maintenance, for loose stool, 08/16/17 13:55:52, Route to Pharmacy Electronically, [id number], [facility] Start Date: 08/16/17 Stop Date: [...] 05/26/20 11:24:00 EDT, EC Capsule, [facility], 158, cm, 02/09/20 13:42:00 EDT, Height, 79.5, kg, 07/24/18 8:22:00 EDT, Dry Weight Start Date: 05/26/20 Status: OrderedOne Touch Ultra 2 Glucose Meter [...]
--- OUTSIDE RECORDS SUMMARY | 2022-08-08 13:54 | XMS_ITS | Continuity of Care Document ---
:1960 Author Organization [facility] Address [address] [place] [address]- Care Team Providers Name Role Phone Juana DAVALOS, Margaret Elizalde Primary Care Physician [phone] [id number] Date(s): 07/05/21 - 07/05/[address] [address]- Discharge Disposition: A-D/C Home Attending Physician: Hernan De La Torre MD Admitting Physician: Hernan De La Torre MD Referring Physician: Not on Staff, Referring [...] 09/11/15 Recorded 1Result Comment: [08/18/2018] Stop and [id number] Comment: [12/07/2015] Given at [facility], estimated date of ekz2Xivhdy Comment: [07/02/2018] [facility]: [phone] Comment: [12/07/2015] Given at [facility], estimated given date Medications 0.2% NIFEDIPINE [...] 04/13/19 10:16:09 EDT, Route to Pharmacy Electronically, [id number], [facility] Start Date: 04/13/19 Status: OrderedLomotil 0.025 mg-2.5 mg oral tablet 2, tablet, By Mouth, 2 times a day, # 120 tablet, Refills 3, Tot. Refills 3, Maintenance, 03/17/20 15:59:00 EDT, Route to Pharmacy Electronically, [facility] Tablet, 158, cm, 02/09/20 13:42:00 EDT, Height, 79.5, kg, 07/24/18 8:22:00 EDT... Start Date: 03/17/20 Stop Date: 07/15/20 Status: OrderedMorPHINE Inj 4 mg, Injection, IV Push Slowly, Once, STAT, 07/05/21 14:06:00 EDT, Stop date 07/05/21 14:06:00 EDT Start Date: 07/05/21 Stop Date: 07/05/21 Status: CompletedMultivitamin By Mouth, Daily, 0 Refills, Maintenance, 05/19/15 8:11:56 Start Date: 05/19/15 Status: Orderedomeprazole 40 mg oral enteric coated capsule 1 capsule = 40 mg, By Mouth, Daily, # 90 capsule, 0 Refills, Maintenance, 05/26/20 11:24:00 EDT, EC Capsule, [facility], 158, cm, 02/09/20 13:42:00 EDT, Height, 79.5, kg, 07/24/18 8:22:00 EDT, Dry Weight Start Date: 05/26/20 Status: Orderedondansetron 4 mg oral tablet, disintegrating 1 tablet = 4 mg, By Mouth, Every 8 hours, PRN Nausea & Vomiting, # 10 tablet, 0 Refills, Acute 07/06/21 17:08:00 EDT, 07/05/21 17:08:00 EDT, Tablet, [facility], Partial fill uponpatient request if the prescription is for a schedule II... Start Date: 07/05/21 Stop Date: 07/06/21 Status: OrderedOne Touch Ultra Test Strips See Instructions, # 100 each, Refills 11, Tot. Refills 11, Maintenance, E11.8 Test blood glucose twice a day and as needed., 02/19/20 15:50:00 EDT, Compound, 158, cm, 02/09/20 13:42:00 EDT, Height, 79.5, kg, 07/24/18 8:22:00 EDT, Dry Weight Start Date: 02/19/20 Status: OrderedoxyCODONE 5 mg oral capsule 1 capsule = 5 mg, By Mouth, Every 6 hours, PRN as needed for pain, # 10 capsule, 0 Refills, Acute 07/06/21 17:08:00 EDT, 07/05/21 17:08:00 EDT, Capsule, [facility], Partial fill uponpatient request if the prescription is for a schedule... Start Date: 07/05/21 Stop Date: 07/06/21 Status: OrderedtraZODone 100 mg oral tablet 100 [...] 2 3 [Reference Range]: Height 155 cm (07/05/21 1:32 PM) Weight 40.5 kg (07/05/21 1:32 PM) Oxygen Saturation [94-100 98 % 96 % %] (07/05/21 4:49 PM) (07/05/21 1:38 PM) Pulse Rate [55-90 bpm] 84 bpm 87 bpm (07/05/21 4:49 PM) (07/05/21 1:38 PM) Blood Pressure 130/64 mm Hg 105/75 mm Hg [90-138/55-84 mm Hg] (07/05/21 4:49 PM) (07/05/21 1:38 PM) Respiratory Rate [16-30 20 br/min 18 br/min 18 br/mi n br/min] (07/05/21 4:49 PM) (07/05/21 2:28 PM) (07/05/21 1:3 8 PM) Temperature [96.8-100.4 97.8 DegF 98.2 DegF DegF] (07/05/21 4:49 PM) (07/05/21 1:38 PM) Mode of Delivery (Oxygen) Room air Room air (07/05/21 4:49 PM) (07/05/21 1:38 PM) Blood pressure sites Arm, right Arm, right (07/05/21 4:49 PM) (07/05/21 1:38 PM) Temperature Route Oral Oral (07/05/21 4:49 PM) (07/05/21 1:38 PM) Dry Weight 70.5 kg (07/05/21 1:32 PM) Weight Obtained Via Patient/family stated (07/05/21 1:32 PM) Social History Social History Type Response Smoking Status Former smoker; Type: Cigaret genesis; Other: Quit 2015; entered on: 10/16/16 Sex
--- OUTSIDE RECORDS SUMMARY | 2022-08-08 13:54 | XMS_ITS | Continuity of Care Document ---
:1960 Author Organization [facility] Address [address] [place] [address]- Care Team Providers Name Role Phone Gucci DAVALOS, Amira Chavez Primary Care Physician Encounter [facility] NBR [id number] Date(s): 02/12/20 - 03/13/20 [facility] [address] [place] [address]- Attending Physician: Not on Staff, Attending MD Allergies, Adverse Reactions, Alerts Substance Reaction Severity Status metFORMIN bad taste in mouth Active Immunizations Given and Recorded Vaccine Date Status Refusal Reason influenza virus vaccine, inactivated1 08/15/18 Recorded influenza virus vaccine, inactivated 10/16/16 Given influenza virus vaccine, inactivated2 09/11/15 Recorded pneumococcal 23-valent vaccine3 07/02/18 Given Zoster Vaccine Live 07/19/17 Given Adacel (Tdap) (oldterm)4 09/11/15 Recorded 1Result Comment: [08/18/2018] Stop and Famp4Arcpio Comment: [12/07/2015] Given at [facility], estimated date of dxr6Vedvsx Comment: [07/02/2018] [facility]: [id number] Comment: [12/07/2015] Given at [facility] [...] EDT, Route to Pharmacy Electronically, [facility], 158, cm, 11/23/19 11:27:00 EST, Height, 79.5, kg, 07/24/18 8:22:00 EDT, Dry Weight Start Date: 01/22/20 Stop Date: 07/20/20 Status: Orderedlisinopril 10 mg oral tablet 10 mg, 1, tablet, By Mouth, Daily, # 30 tablet, Refills 5, Tot. Refills 5, Maintenance, 04/13/19 10:16:09 EDT, Route to Pharmacy Electronically, [id number], [facility] Start Date: 04/13/19 Status: OrderedLomotil 0.025 mg-2.5 mg oral tablet 2, tablet, By Mouth, 2 times a day, # 120 tablet, Refills 1, Tot. Refills 1, Maintenance, 02/09/20 14:09:00 EDT, Route to Pharmacy Electronically, [facility] Tablet, 158, cm, 02/09/20 13:42:00 EDT, Height, 79.5, kg, 07/24/18 8:22:00 EDT... Start Date: 02/09/20 Stop Date: 04/09/20 Status: Orderedloperamide 2 mg oral capsule 4 mg, 2, capsule, By Mouth, Every 4 hours, PRN, # 240 capsule, Refills 6, Tot. Refills 6, Maintenance, for loose stool, 08/16/17 13:55:52, Route to Pharmacy Electronically, [id number], [facility] Start Date: 08/16/17 Stop Date: [...] Refills, Maintenance, 12/21/19 9:50:00 EST, EC Capsule, [facility], [...]
--- OUTSIDE RECORDS SUMMARY | 2022-08-08 13:54 | XMS_ITS | Continuity of Care Document ---
:1960 Author Organization [facility] Address [address] [place] [address]- Care Team Providers Name Role Phone Gucci DAVALOS, Amira Chavez Primary Care Physician Encounter [facility] Date(s): 02/27/20 - 06/26/20 [facility] [address] [place] [address]- Attending Physician: Amira Duckworth NP Allergies, Adverse Reactions, Alerts Substance Reaction Severity Status metFORMIN bad taste in mouth Active Immunizations Given and Recorded Vaccine Date Status Refusal Reason influenza virus vaccine, inactivated1 08/15/18 Recorded influenza virus vaccine, inactivated 10/16/16 Given influenza virus vaccine, inactivated2 09/11/15 Recorded pneumococcal 23-valent vaccine3 07/02/18 Given Zoster Vaccine Live 07/19/17 Given Adacel (Tdap) (oldterm)4 09/11/15 Recorded 1Result Comment: [08/18/2018] Stop and [id number] Comment: [12/07/2015] Given at [facility], estimated date of [id number] Comment: [07/02/2018] [facility]: [id number] Comment: [12/07/2015] Given at [facility], estimated given date Medications [...] 01/22/20 8:14:00 EDT, Route to Pharmacy Electronically, [facility], 158, cm, 11/23/19 11:27:00 EST, Height, 79.5, kg, 07/24/18 8:22:00 EDT, Dry Weight Start Date: 01/22/20 Stop Date: 07/20/20 Status: Orderedlisinopril 10 mg oral tablet 10 mg, 1, tablet, By Mouth, Daily, # 30 tablet, Refills 5, Tot. Refills 5, Maintenance, 04/13/19 10:16:09 EDT, Route to Pharmacy Electronically, [id number], [facility] Start Date: 04/13/19 Status: OrderedLomotil 0.025 mg-2.5 mg oral tablet 2, tablet, By Mouth, 2 times a day, # 120 tablet, Refills 3, Tot. Refills 3, Maintenance, 03/17/20 15:59:00 EDT, Route to Pharmacy Electronically, [facility] Tablet, 158, cm, 02/09/20 13:42:00 EDT, Height, 79.5, kg, 07/24/18 8:22:00 EDT... Start Date: 03/17/20 Stop Date: 07/15/20 Status: Orderedloperamide 2 mg oral capsule 4 mg, 2, capsule, By Mouth, Every 4 hours, PRN, # 240 capsule, Refills 6, Tot. Refills 6, Maintenance, for loose stool, 08/16/17 13:55:52, Route to Pharmacy Electronically, [id number], [facility] Start Date: 08/16/17 Stop Date: [...] 05/26/20 11:24:00 EDT, EC Capsule, [facility], 158, cm, 02/09/20 13:42:00 EDT, [...]
--- OUTSIDE RECORDS SUMMARY | 2022-08-08 13:54 | XMS_ITS | Continuity of Care Document ---
:1960 Author Organization [facility] Address [address] [place] [address]- Care Team Providers Name Role Phone Not on Staff, PCP Primary Care Physician Unavailable Encounter [facility] NBR [id number] Date(s): 08/19/20 - 08/19/[address] [address]- [facility] Discharge Disposition: A-D/C Home Attending Physician: Ovi Corcoran MD Admitting Physician: Ovi Corcoran MD Referring Physician: Not on Staff, Referring [...] 09/11/15 Recorded 1Result Comment: [08/18/2018] Stop and [id number] Comment: [12/07/2015] Given at [facility], estimated date of [id number] Comment: [07/02/2018] [facility]: [id number] Comment: [12/07/2015] Given at [facility], estimated given date Medications 0.2% [...] 04/13/19 10:16:09 EDT, Route to Pharmacy Electronically, [id number], [facility] Start Date: 04/13/19 Status: OrderedLomotil 0.025 mg-2.5 mg oral tablet 2, tablet, By Mouth, 2 times a day, # 120 tablet, Refills 3, Tot. Refills 3, Maintenance, 03/17/20 15:59:00 EDT, Route to Pharmacy Electronically, [facility] Tablet, 158, cm, 02/09/20 13:42:00 EDT, Height, 79.5, kg, 07/24/18 8:22:00 EDT... Start Date: 03/17/20 Stop Date: 07/15/20 Status: Orderedloperamide 2 mg oral capsule 4 mg, 2, capsule, By Mouth, Every 4 hours, PRN, # 240 capsule, Refills 6, Tot. Refills 6, Maintenance, for loose stool, 08/16/17 13:55:52, Route to Pharmacy Electronically, [id number], [facility] Start Date: 08/16/17 Stop Date: 03/14/18 Status: OrderedMetoclopramide 0 Refills, Maintenance, 08/19/20 12:04:00 EDT Start Date: 08/19/20 Status: OrderedMultivitamin By Mouth, Daily, 0 Refills, [...] 05/26/20 11:24:00 EDT, EC Capsule, [facility], 158, cm, 02/09/20 13:42:00 EDT, [...] Date: 02/19/20 Status: OrderedoxyCODONE 5 mg oral tablet 5 mg, 1, tablet, By Mouth, Every 6 hours, PRN, for 5 days, # 20 tablet, Refills 0, Tot. Refills 0, Acute 08/24/20 15:25:00 EDT, as needed for pain, 08/19/20 15:25:00 EDT, Route to Pharmacy Electronically, [facility], Partial fill upon p... Start Date: 08/19/20 Stop Date: 08/24/20 Status: OrderedtraZODone 100 mg oral tablet 100 [...] [Reference Range]: Height 155 cm 155 cm (08/19/20 3:37 PM) (08/19/20 11:57 AM) Weight 83.6 kg 83.6 kg (08/19/20 3:37 PM) (08/19/20 11:57 AM) Oxygen Saturation [94-100 %] 100 % (08/19/20 3:37 PM) Pulse Rate [55-90 bpm] 66 bpm 102 bpm (08/19/20 3:37 PM) *H* (08/19/20 11:57 AM) Blood Pressure [90-138/55-84 124/64 mm Hg 122/84 mm Hg mm Hg] (08/19/20 3:37 PM) (08/19/20 11:57 AM) Respiratory Rate [16-30 18 br/min 18 br/min 17 br/mi n br/min] (08/19/20 3:37 PM) (08/19/20 3:32 PM) (08/19/20 12: 48 PM) Temperature [96.8-100.4 98.2 DegF 97.1 DegF DegF] (08/19/20 3:37 PM) (08/19/20 11:57 AM) Mode of Delivery (Oxygen) Room air (08/19/20 3:37 PM) Blood pressure sites Arm, left (08/19/20 3:37 PM) Temperature Route Oral Temporal (08/19/20 3:37 PM) (08/19/20 11:57 AM) Dry Weight 83.6 kg 83.6 kg (08/19/20 3:37 PM) (08/19/20 11:57 AM) Weight Obtained Via Standing scale (08/19/20 11:57 AM) Dry Weight Obtained Via Standing scale (08/19/20 11:57 AM) Social History Social History Type Response Smoking Status Former smoker; Type: Cigaret genesis; Other: Quit 2015; entered on: 10/16/16 Sex
--- OUTSIDE RECORDS SUMMARY | 2022-08-08 13:54 | XMS_ITS | Continuity of Care Document ---
:1960 Author Organization [facility] Address [address] [place] [address]- Care Team Providers Name Role Phone Juana DAVALOS, Margaret Elizalde Primary Care Physician [phone] Encounter [facility] Date(s): 07/09/22 - 07/09/[address] [address]- Discharge Disposition: A-D/C Home Attending Physician: Hernan [...] 09/11/15 Recorded 1Result Comment: [08/18/2018] Stop and [id number] Comment: [12/07/2015] Given at [facility], estimated date of [id number] Comment: [07/02/2018] [facility]: [phone] Comment: [12/07/2015] Given at [facility], estimated given date Medications 0.2% [...] Start Date: 10/22/19 Stop Date: 04/19/20 Status: OrderedLatanoprost Ophthalmic Daily before dinner, 0 Refills, Maintenance, 07/07/22 11:38:00 EDT, Partial fill upon patient request if the prescription is for a schedule II opioid drug. Start Date: 07/07/22 Status: Orderedlisinopril 10 mg oral tablet 10 mg, 1, tablet, By Mouth, Daily, # 30 tablet, Refills 5, Tot. Refills 5, Maintenance, 04/13/19 10:16:09 EDT, Route to Pharmacy Electronically, [id number], [facility] Start Date: 04/13/19 Status: OrderedLomotil 0.025 mg-2.5 mg oral tablet 2, tablet, By Mouth, 2 times a day, # 120 tablet, Refills 3, Tot. Refills 3, Maintenance, 03/17/20 15:59:00 EDT, Route to Pharmacy Electronically, [facility] Tablet, 158, cm, 02/09/20 13:42:00 EDT, Height, 79.5, kg, 07/24/18 8:22:00 EDT... Start Date: 03/17/20 Stop Date: 07/15/20 Status: OrderedMorPHINE Inj 4 mg, Injection, IV Push Slowly, Every 5 minutes for 3 doses/times, PRN for Pain , Moderate, and SBPgreater than 100, Routine, 07/09/22 14:03:00 EDT, Stop date Limited # of times Start Date: 07/09/22 Status: OrderedMultivitamin By Mouth, Daily, 0 Refills, Maintenance, 05/19/15 8:11:56 Start Date: 05/19/15 Status: Orderedomeprazole 40 mg oral enteric coated capsule 1 capsule = 40 mg, By Mouth, Daily, # 90 capsule, 0 Refills, Maintenance, 05/26/20 11:24:00 EDT, EC Capsule, [facility], 158, cm, 02/09/20 13:42:00 EDT, [...] EDT, Dry Weight Start Date: 02/19/20 Status: OrderedPromethazine 0 Refills, Maintenance, 07/07/22 11:38:00 EDT, Partial fill upon patient request if the prescriptionis for a schedule II opioid drug. Start Date: 07/07/22 Status: OrderedtraZODone 100 mg oral tablet 100 [...] complications(Confirmed) Vital Signs Most recent to oldest [Reference Range]: 1 2 Height 155 cm 155 cm (07/09/22 12:06 PM) (07/09/22 12:04 PM) Weight 64.2 kg (07/09/22 12:06 PM) Oxygen Saturation [94-100 %] 98 % (07/09/22 12:04 PM) Pulse Rate [55-90 bpm] 115 bpm *H* (07/09/22 12:04 PM) Blood Pressure [90-138/55-84 mm Hg] 137/80 mm Hg (07/09/22 12:04 PM) Respiratory Rate [16-30 br/min] 18 br/min 20 br/mi n (07/09/22 1:59 PM) (07/09/22 12:04 PM) Temperature [96.8-100.4 DegF] 97 DegF (07/09/22 12:04 PM) Mode of Delivery (Oxygen) Room air (07/09/22 12:04 PM) Blood pressure sites Arm, left (07/09/22 12:04 PM) Temperature Route Temporal (07/09/22 12:04 PM) Dry Weight 64.2 kg 64.2 kg (07/09/22 12:06 PM) (07/09/22 12:04 PM) Dry Weight Obtained Via Standing scale (07/09/22 12:04 PM) Social History Social History Type Response Smoking Status Former smoker; Type: Cigaret genesis; Other: Quit 2015; entered on: 10/16/16 Sex Care Team PersonnelName: Juana DAVALOS, Margaret Elizalde Address: [address] [place] [id number]
--- OUTSIDE RECORDS SUMMARY | 2022-08-08 13:54 | XMS_ITS | Continuity of Care Document ---
:1960 Author Organization [facility] Address [address] [place] [address] Drive [address] [place] [address]- Care Team Providers Name Role Phone Juana DAVALOS, Margaret Elizalde Primary Care Physician [phone] [id number] Date[facility] - 01[facility]17/[address] [place] [address]- Attending Physician: Jag BENJAMIN, Herlinda Chavez Referring Physician: Not on Staff, Referring MD [...] 09/11/15 Recorded 1Result Comment: [08/18/2018] Stop and [id number] Comment: [12/07/2015] Given at [facility], estimated date of [id number] Comment: [07/02/2018] [facility]: [id number] Comment: [12/07/2015] Given at [facility], estimated given date Medications 0.2% NIFEDIPINE [...] 04/13/19 10:16:09 EDT, Route to Pharmacy Electronically, [id number], [facility] Start Date: 04/13/19 Status: OrderedLomotil 0.025 mg-2.5 mg oral tablet 2, tablet, By Mouth, 2 times a day, # 120 tablet, Refills 3, Tot. Refills 3, Maintenance, 03/17/20 15:59:00 EDT, Route to Pharmacy Electronically, [facility] Tablet, 158, cm, 02/09/20 13:42:00 EDT, Height, 79.5, kg, 07/24/18 8:22:00 EDT... Start Date: 03/17/20 Stop Date: 07/15/20 Status: Orderedloperamide 2 mg oral capsule 4 mg, 2, capsule, By Mouth, Every 4 hours, PRN, # 240 capsule, Refills 6, Tot. Refills 6, Maintenance, for loose stool, 08/16/17 13:55:52, Route to Pharmacy Electronically, [id number], [facility] Start Date: 08/16/17 Stop Date: [...] 05/26/20 11:24:00 EDT, EC Capsule, [facility], 158, cm, 02/09/20 13:42:00 EDT, Height, 79.5, kg, 07/24/18 8:22:00 EDT, Dry Weight Start Date: 05/26/20 Status: Orderedondansetron 4 mg oral tablet, disintegrating 1 tablet = 4 mg, By Mouth, Every 8 hours, PRN as needed for nausea/vomiting, 0 Refills, Maintenance,07/23/20 14:29:00 EDT, DIS Tablet Start Date: 07/23/20 Status: Orderedondansetron 4 mg oral tablet, disintegrating 1 tablet = 4 mg, By Mouth, Every 8 hours, PRN as needed for nausea/vomiting, # 15 tablet, 0 Refills,Maintenance, 12/27/20 20:21:00 EST, DIS Tablet, [facility], Partial fill upon patient request if the prescription is for a schedule II o... Start Date: 12/27/20 Status: OrderedOne Touch Ultra Test Strips See [...] 16:51:33 EDT, Compound Start Date: 07/17/18 Status: OrderedZofran 4 mg oral tablet 1 tablet = 4 mg, By Mouth, Every 8 hours, PRN Nausea & Vomiting, do not take with reglan, # 10 tablet, 0 Refills, Maintenance, 09/06/20 14:11:00 EDT, Tablet, [facility], 155, cm,09/06/20 10:37:00 EDT, Height, 84.3, kg, 09/06/20 10:37:0... 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
== END 2022-07-24 11:13 | disposition home or self-care (01) | DRG 751 ==
PROVIDERS: Physician Assistant Medical; Registered Nurse; Admitting Provider Psychiatry & Neurology Psychiatry; Visit Provider Psychiatry & Neurology Psychiatry
DX: F33.2 Major depressive disorder, recurrent severe without psychotic features (principal); R45.851 Suicidal ideations; K74.60 Unspecified cirrhosis of liver; I10 Essential (primary) hypertension; F43.10 Post-traumatic stress disorder, unspecified; F42.9 Obsessive-compulsive disorder, unspecified; K75.81 Nonalcoholic steatohepatitis (NASH); K59.00 Constipation, unspecified; K21.9 Gastro-esophageal reflux disease without esophagitis; E78.5 Hyperlipidemia, unspecified; Z79.51 Long term (current) use of inhaled steroids; Z79.899 Other long term (current) drug therapy
CPT/HCPCS: 36415; 80048; 80061; 80076; 80178; 81003; 82607; 82746; 83036; 83735; 84439; 84443